=== PATIENT | female | born 1970 | race Hispanic/Latino ===

== ENCOUNTER 2024-11-14 11:20 | Emergency (ER) | payer OTHER, SELFPAY ==
[2024-11-14] MEDS ORDERED: ACETAMINOPHEN 500 MG TAB ONE (12:03)
[2024-11-14] MEDS ORDERED: KETOROLAC 30 MG/ML INJ ONE (12:03)
--- NOTE | 2024-11-14 13:08 | RAD REPORT ---
Exam:Foot Right 3 View CLINICAL HISTORY: Right foot pain FINDINGS: No fracture or dislocation seen
--- NOTE | 2024-11-14 13:15 | ER ---
Nurse's Notes [facility] Name: Carolina Juan Age: 54 yrs Sex: Female : 1970 Arrival Date: 11/14/2024 Time: 11:20 Bed 12 Private MD: Diagnosis: Contusion of right foot Presentation: 11/14 11:44 Chief complaint: Patient states: had an injury on right foot yesterday , the roll of iw vinyl edmond fell on my foot, still has pain and pounding in the foot. Coronavirus screen: At this time, the client does not indicate any symptoms associated with coronavirus-19. Ebola Screen: No symptoms or risks identified at this time. Initial Sepsis Screen: Does the patient meet any 2 criteria? No. Patient's initial sepsis screen is negative. Does the patient have a suspected source of infection? No. Patient's initial sepsis screen is negative. Risk Assessment: Do you want to hurt yourself or someone else? Patient reports no desire to harm self or others. Onset of symptoms was November 13, 2023. 11:44 Method Of Arrival: Ambulatory iw 11:44 Acuity: KYREE 4 iw Historical: - Allergies: 11:45 No Known Allergies; iw - PMHx: 11:45 None; iw - PSHx: 11:45 Cholecystectomy; iw - Immunization history:: Adult Immunizations up to date. - Infectious Disease History:: Denies. - Social history:: Smoking status: . Screenin:12 [facility] ED Fall Risk Assessment (Adult) History of falling in the last 3 months, ld1 including since admission No falls in past 3 months (0 pts) Confusion or Disorientation No (0 pts) Intoxicated or Sedated No (0 pts) Impaired Gait No (0 pts) Mobility Assist Device Used No (0 pt) Altered Elimination No (0 pt) Score/Fall Risk Level 0 - 2 = Low Risk Oriented to surroundings, Maintained a safe environment, Educated pt \T\ family on fall prevention, incl call for assistance when getting out of bed, Assessed \T\ reinforced patient's understanding of fall precautions, Provided non-skid footwear, Hourly rounding (assess needs \T\ fall precautionary measures) done, Used ambulatory aids as needed (educated on \T\ assisted with), Used gait belt as appropriate. Abuse screen: Denies threats or abuse. Denies injuries from another. Nutritional screening: No deficits noted. Tuberculosis screening: No symptoms or risk factors identified. Assessment: 12:12 General: Appears in no apparent distress. uncomfortable, Behavior is calm, cooperative, ld1 appropriate for age. Pain: Complains of pain in right foot Pain does not radiate. Pain currently is 8 out of 10 on a pain scale. Quality of pain is described as throbbing, Pain began suddenly. Neuro: Level of Consciousness is awake, alert, obeys commands, Oriented to person, place, time, situation, Appropriate for age. Cardiovascular: Capillary refill < 3 seconds Patient's skin is warm and dry. Respiratory: Airway is patent Respiratory effort is even, unlabored. GI: Abdomen is flat, non-distended. : No signs and/or symptoms were reported regarding the genitourinary system. EENT: No signs and/or symptoms were reported regarding the EENT system. Musculoskeletal: Range of motion: intact in all extremities. Vital Signs: 11:44 BP 122 / 107; Pulse 88; Resp 16; Temp 97.6; Pulse Ox 100% on R/A; Weight 113.4 kg; iw Height 5 ft. 2 in. ; Pain 7/10; 12:12 BP 132 / 99; Pulse 84; Resp 18; Pulse Ox 100% on R/A; Pain 7/10; ld1 11:44 Body Mass Index 45.73 (113.40 kg, 157.48 cm) iw 11:44 Pain Scale: Adult iw 12:12 Pain Scale: Adult ld1 ED Course: 11:24 Patient arrived in ED. sj2 11:25 Nico Jaquez MD is Attending Physician. ec2 11:45 Triage completed. iw 11:46 Arm band placed on. iw 12:06 Leti Orosco, CHRIS is Primary Nurse. ld1 12:12 Patient has correct armband on for positive identification. Placed in gown. Bed in low ld1 position. Call light in reach. Side rails up X2. quality assurance monitor on. Pulse ox on. NIBP on. Door closed. Noise minimized. Warm blanket given. 12:12 No provider procedures requiring assistance completed. ld1 12:50 Foot Right 3 View XRAY In Process Unspecified. EDMS 13:34 Patient did not have IV access during this emergency room visit. ld1 Administered Medications: 12:11 Drug: Ketorolac IM 30 mg IM once Route: IM; Site: right deltoid; ld1 12:12 Not Given (Patient Refused): [id number] mg PO once ld1 Medication: 12:12 VIS not applicable for this client. ld1 Outcome: 13:15 Discharge ordered by . ec2 13:33 Discharged to home ambulatory, ld1 13:33 Condition: stable 13:33 Discharge instructions given to patient, Instructed on discharge instructions, follow up and referral plans. Demonstrated understanding of instructions, follow-up care, 13:34 Patient left the ED. ld1 Signatures: Dispatcher [employer] Lexii Teran RN RN iw Leti Orosco RN RN ld1 Nico Jaquez MD MD ec2 Chidi Akhtar
--- NOTE | 2024-11-14 13:15 | EDPHYS ---
Physician Documentation [facility] Name: Carolina Juan Age: 54 yrs Sex: Female : 1970 Arrival Date: 11/14/2024 Time: 11:20 Bed 12 Private MD: ED Physician Nico Jaquez HPI: 11/14 11:53 This 54 yrs old Female presents to ER via Ambulatory with complaints of Foot ec2 Injury. 11:53 Patient arrives today for evaluation of a foot injury. Had dropped a heavy object on ec2 the right foot. No other concerns. Complaining of throbbing sensation.. Historical: - Allergies: 11:45 No Known Allergies; iw - PMHx: 11:45 None; iw - PSHx: 11:45 Cholecystectomy; iw - Immunization history:: Adult Immunizations up to date. - Infectious Disease History:: Denies. - Social history:: Smoking status: . ROS: 11:53 Constitutional: as per hpi ec2 Exam: 11:53 Constitutional: GEN: NAD Head: atraumatic Eyes: EOMI Ears: External ears are ec2 normal. CV: regular rate LUNGS: no respiratory distress ABD: non-distended SKIN: no evidence of rashes MSK: Contusion and swelling noted to the right foot. No obvious deformities Vital Signs: 11:44 BP 122 / 107; Pulse 88; Resp 16; Temp 97.6; Pulse Ox 100% on R/A; Weight 113.4 kg; iw Height 5 ft. 2 in. ; Pain 7/10; 12:12 BP 132 / 99; Pulse 84; Resp 18; Pulse Ox 100% on R/A; Pain 7/10; ld1 11:44 Body Mass Index 45.73 (113.40 kg, 157.48 cm) iw 11:44 Pain Scale: Adult iw 12:12 Pain Scale: Adult ld1 MDM: 11:46 Medical Screening Exam initiated ec2 13:13 Data reviewed: vital signs. ec2 13:13 ED course: Foot x-ray shows no bony fracture. Will discharge home. Turn precautions ec2 given. Instructed on supportive care.. 11/14 11:46 Order name: Foot Right 3 View XRAY; Complete Time: 13:13 ec2 11/14 11:47 Order name: Osmar Wrap; Complete Time: 12:12 ec2 Administered Medications: 12:11 Drug: Ketorolac IM 30 mg IM once Route: IM; Site: right deltoid; ld1 12:12 Not Given (Patient Refused): [id number] mg PO once ld1 Disposition Summary: 11/14/24 13:15 Discharge Ordered Notes: Location: Home ec2 Condition: Stable ec2 Diagnosis - Contusion of right foot ec2 Followup: ec2 - With: Private Physician - When: - Reason: Re-evaluation by your physician Discharge Instructions: - Discharge Summary Sheet ec2 - Contusion, [id number] ec2 Forms: - Medication Reconciliation Form ec2 - Antibiotic Education ec2 - Prescription Opioid Use ec2 - Patient Portal Instructions ec2 - Leadership Thank You Letter ec2 Signatures: Dispatcher [employer] Lexii Teran RN RN iw Leti Orosco RN RN ld1 Nico Jaquez MD MD ec2
[2024-11-14 14:40] VITALS: BP 132/99; TEMP 97.6; O2SAT 100
== END 2024-11-14 13:34 | disposition home or self-care (01) ==
LOC: ER 11:20
DX: S90.31XA Contusion of right foot, initial encounter (principal); W22.8XXA Striking against or struck by other objects, initial encounter
CPT/HCPCS: 96372; 99284